=== PATIENT | male | born 1990 | race Caucasian/White ===

== ENCOUNTER 2020-10-11 10:20 | Outpatient (REF) | payer OTHER, SELFPAY | END 2020-10-11 10:21 | disposition home or self-care (01) | LOC: HO.LAB 10:20 | PROVIDERS: Visit Provider Internal Medicine | DX: Z20.822 Contact with and (suspected) exposure to COVID-19 (principal) | CPT/HCPCS: 36415; C9803; U0003 ==

== ENCOUNTER 2020-11-19 19:24 | Emergency (ER) | payer OTHER, SELFPAY ==
[2020-11-19 19:32] VITALS: BP 172/95; PULSE 68; RESP 16; TEMP 36.8; O2SAT 99; BMI 25.7
[2020-11-19] MEDS: Lidocaine HCl 1 % MPF 5 ML VIAL SUBCUT (19:47)
--- NOTE | 2020-11-19 19:53 | ED.SKABFB ---
HPI - Skin/Abscess/Foreign Bdy General Chief complaint: Skin/Abscess/Foreign Body Stated complaint: Abscess Time Seen by Provider: 11/19/20 19:39 Source: patient Mode of arrival: ambulatory Limitations: no limitations History of Present Illness HPI narrative: State feeling of tender area in the right axilla initially felt like a pimple and has been growing for the past couple days his father tried to [place] with a needle guide liver pus out this morning the size has decreased however still painful. There is no fever or chills. MD complaint: abscess/boil Onset (ago): day(s) Tetanus up to date: yes Location: RUE (Axilla) Severity: moderate Severity scale (1-10): 5 Quality: aching Pain Consistency: intermittent (With movement and palpation) Relieving factors: immobilization and other (Compress) Exacerbating factors: palpation and movement Context: none Associated symptoms: denies other symptoms Related Data Previous Rx's Medication Instructions Recorded doxycycline monohydrate 100 mg PO BID 7 Days #14 cap 11/19/20 ibuprofen 800 mg PO Q8H PRN #30 tab 11/19/20 oxycodone 5 mg PO Q8H PRN 3 Days #5 tab 11/19/20 Allergies Allergy/AdvReac Type Severity Reaction Status Date / Time No Known Allergies Allergy Verified 11/19/20 19:39 [No Known Allergies*] Review of Systems Review of Systems: Constitutional: No Weight loss, No Fever, No Chills, No Night Sweats, No Fatigue, No Malaise ENT/Mouth: No Hearing loss, No Ear Pain, No Nasal Congestion, No Sinus Pain, No Hoarseness, No sore throat, No Rhinorrhea, No Swallowing Difficulty Eyes: No Eye Pain, No Swelling, No Redness, No Foreign Body, No Discharge, No Vision Changes Cardiovascular: No Chest Pain, No SOB, No Dyspnea on Exertion, No Orthopnea, No Edema, No Palpitations Respiratory: Negative Gastrointestinal: Negative Genitourinary: Negative Musculoskeletal: No joint pain, No Myalgias, No Joint Swelling Skin: No Skin Lesions, No rash, as noted per HPI Neuro: No Weakness, No Numbness, No Paresthesias, No Loss of Consciousness, No Dizziness, No Headache Psych: Negative Heme/Lymph: No Bruising, No Bleeding,No Lymphadenopathy Endocrine: No Polyuria, No Polydipsia, No Temperature Intolerance Yes all other systems are reviewed and are negative [facility] Past Medical History Medical History (Updated 11/19/20 @ 19:41 by Juwan Hernandez NP) No known health problems Social History Social History Smoked in Last 30 Days: No Use of substances other than those prescribed or required for medical reasons: No Any prior treatment program specific to substance use: No Advance Directives: No Physical Exam Vital Signs: Vital Signs: Last Vital Signs Temp 98.2 F 11/19/20 19:32 Pulse 68 11/19/20 19:32 Resp 16 11/19/20 19:32 BP 172/95 H 11/19/20 19:32 Pulse Ox 99 11/19/20 19:32 Body Mass Index 25.7 Reviewed Const: General: cooperative and healthy appearing; No acute distress or intoxicated appearing Nutritional Appearance: average body habitus Orientation/consciousness: patient oriented x3 HENMT: Head: Yes normal to inspection Ears: hearing grossly normal bilaterally Resp: Effort & Inspection: normal respiratory effort Auscultation: clear to auscultation bilaterally Cardio: Jugular venous distension: no JVD Rhythm: regular rhythm Heart sounds: S1 normal heart sound present and S2 normal heart sound present : General: Yes no CVA tenderness Back/Spine/Pelvis: Back: no CVA tenderness Skin: Other: Right mid axilla noted to have 3 cm annular raised area slightly fluctuant. There is some surrounding mild erythema just around the border of this indurated area. Neuro: General: patient oriented x3 Extrem: General: Yes normal to inspection Course Course Course Narrative: Small right axilla abscess requiring I and D with localized cellulitis. I and D with packing, discharged home with p.o. antibiotics return in 2 days for packing removal. Mass PET reviewed no concerning pattern. Given for 5 tablets of oxycodone for pain as he requests today given that his Tylenol ibuprofen did not help much. Procedures Abscess I/D Site: upper extremity (Axilla) Side (if applicable): right Local Anesthetic: lidocaine 1% Amount of anesthesia used (mL): 5 Technique: incised with blade (11. ) Amount of fluid expressed (mL): 2 Irrigation: Yes Packing used?: plain Complications: other (Tolerated well.) Discharge Plan Discharge Clinical Impression: Abscess of axilla, right, Encounter for incision and drainage procedure Patient Disposition: Home, Self-Care Instructions: Abscess Incision and Drainage (DC) Additional Instructions: Warm compresses Keep site clean and dry Return 2 days for wound packing removal/recheck Return sooner if any concerns or worsening symptoms Thank you Prescriptions: New ibuprofen 800 mg tablet 800 mg PO Q8H PRN (Reason: pain) Qty: 30 RF: 0 doxycycline monohydrate 100 mg capsule 100 mg PO BID 7 Days Qty: 14 RF: 0 oxycodone 5 mg tablet 5 mg PO Q8H PRN (Reason: pain) 3 Days Qty: 5 RF: 0 Referrals: Juwan Hernandez, PSYCHIATRIC LPN [Emergency Midlevel Provider] - 2 days
== END 2020-11-19 20:14 | disposition home or self-care (01) ==
PROVIDERS: Emergency Provider Internal Medicine
DX: L02.411 Cutaneous abscess of right axilla (principal)
CPT/HCPCS: 10060; 99284

== ENCOUNTER 2021-05-22 19:25 | Emergency (ER) | payer SELFPAY ==
[2021-05-22 19:41] VITALS: BP 159/96; PULSE 60; RESP 16; TEMP 36.6; O2SAT 99; BMI 27.3
--- NOTE | 2021-05-22 20:58 | ED.SKABFB ---
HPI - Skin/Abscess/Foreign Bdy General Chief complaint: Skin/Abscess/Foreign Body Stated complaint: Abscess Time Seen by Provider: 05/22/21 20:28 Source: patient Mode of arrival: ambulatory Limitations: no limitations History of Present Illness HPI narrative: 30 y/o male presenting with a tender reddened lesion on his right underarm for the last 3 days. He has a history of an abscess in the same spot a while ago that required I&D but it was much worse. He denies fever or chills. He has pain when he puts his arm down. He is not diabetic. MD complaint: abscess/boil Onset (ago): day(s) (3) Tetanus up to date: yes Location: RUE Severity: moderate Severity scale (1-10): 6 Quality: aching and sharp Pain Consistency: intermittent Relieving factors: immobilization Exacerbating factors: movement Context: none Associated symptoms: denies other symptoms Treatments prior to arrival: none Related Data Previous Rx's Medication Instructions Recorded doxycycline monohydrate 100 mg 100 mg PO BID 7 Days #14 cap 11/19/20 capsule ibuprofen 800 mg tablet 800 mg PO Q8H PRN #30 tab 11/19/20 oxycodone 5 mg tablet 5 mg PO Q8H PRN 3 Days #5 tab 11/19/20 cephalexin 500 mg capsule 500 mg PO Q6H 7 Days #28 cap 05/22/21 doxycycline monohydrate 100 mg 100 mg PO BID #14 tab 05/22/21 tablet Allergies Allergy/AdvReac Type Severity Reaction Status Date / Time No Known Allergies Allergy Verified 05/22/21 20:31 [No Known Allergies*] Review of Systems Review of Systems: Constitutional: No Fever, No Chills Cardiovascular: No Chest Pain, No SOB Respiratory: No Cough, No Sputum Gastrointestinal: No Nausea, No Vomiting, No abdominal Pain Musculoskeletal: No joint pain, No Myalgias Skin: + Skin Lesions, No rash Neuro: No Weakness, No Numbness, No Dizziness, No Headache Psych: + Anxiety/Panic Heme/Lymph: No Bruising, No Lymphadenopathy PMFSH Past Medical History Medical History (Updated 05/22/21 @ 20:59 by DEBI Locke) No known health problems Social History Social History Advance Directives: No Physical Exam Vital Signs: Vital Signs: Last Vital Signs Temp 97.9 F 05/22/21 19:41 Pulse 60 05/22/21 19:41 Resp 16 05/22/21 19:41 BP 159/96 H 05/22/21 19:41 Pulse Ox 99 05/22/21 19:41 Body Mass Index 27.3 Appearance: Alert. Oriented X3. No acute distress. HEENT: normal inspection CVS: Normal heart rate and rhythm. Pulses normal. Respiratory: No respiratory distress. Skin: Skin warm and dry. Normal skin color. Normal skin turgor. No rashes. Extremities: right axillary area with a 2cm firm, erythematous, indurated lesion with mild surrounding erythema and warmth, no fluctuance Neuro: Oriented X 3. No motor deficit. No sensory deficit. Course Course Course Narrative: 30 y/o male presenting with an early abscess to his right axilla. Lesion is small without fluctuance. He would prefer conservative treatment with PO abx, warm compresses and holding off on I&D for now. He will come back to the hospital if symptoms worsen despite conservative management. Critical Care Time Critical Care Time Critical Care Time: No Discharge Plan Discharge Clinical Impression: Abscess of skin or subcutaneous tissue Qualifiers: Site of cutaneous abscess: extremity Site of cutaneous abscess of extremity: axilla Laterality: right Qualified Code(s): L02.411 - Cutaneous abscess of right axilla Patient Disposition: Home, Self-Care Instructions: Abscess (ED) Additional Instructions: Use warm compresses to the area several times per day. Take the prescribed antibiotics as directed. If you have worsening pain, swelling or redness come back to the ER for further evaluation. Prescriptions: New doxycycline monohydrate 100 mg tablet 100 mg PO BID Qty: 14 RF: 0 cephalexin 500 mg capsule 500 mg PO Q6H 7 Days Qty: 28 RF: 0 No Action ibuprofen 800 mg tablet 800 mg PO Q8H PRN (Reason: pain) Qty: 30 RF: 0 doxycycline monohydrate 100 mg capsule 100 mg PO BID 7 Days Qty: 14 RF: 0 oxycodone 5 mg tablet 5 mg PO Q8H PRN (Reason: pain) 3 Days Qty: 5 RF: 0 Interventions: ED Discharge Assessment Last Done: 05/22/21 21:42 Discharge Date/Time: 05/22/21 21:43
[2021-05-22] MEDS: cephALEXin 500 MG CAPSULE PO (21:35)
== END 2021-05-22 21:43 | disposition home or self-care (01) ==
PROVIDERS: Emergency Provider Internal Medicine
DX: L02.411 Cutaneous abscess of right axilla (principal); Z79.899 Other long term (current) drug therapy
CPT/HCPCS: 99283; 99284

== ENCOUNTER → 2021-12-20 10:20 | Outpatient (BNVA) | payer SELFPAY | PROVIDERS: Visit Provider Physician Assistant Medical | DX: Z02.79 Encounter for issue of other medical certificate (principal) ==

== ENCOUNTER 2022-02-08 13:55 | Emergency (ER) | payer SELFPAY ==
--- NOTE | ~2022-02-08 | XR_ITS ---
EXAMINATION: XR CHEST CLINICAL INFORMATION: Cough COMPARISON: None TECHNIQUE: 2 views of the chest were obtained. FINDINGS: No significant abnormality is noted involving the heart, lungs, mediastinum, bony thorax or soft tissues. XR/XR chest 2V IMPRESSION: Unremarkable examination.
[2022-02-08 15:00] VITALS: BP 168/94; PULSE 74; RESP 18; TEMP 36.8; O2SAT 99; BMI 28.1
[2022-02-08 15:42] LABS: Influenza A Negative (Negative); Influenza B2 Negative (Negative)
[2022-02-08 16:05] LABS: Strep A Nucleic Acid Negative (Negative)
[2022-02-08 16:09] LABS: COVID-19 Test Invalid (Negative); IDNOW Serial# 55D5AD1C
--- NOTE | 2022-02-08 16:11 | PC.NURSE ---
lab called asked for just covid to be recollected as the testing kept coming back invalid for the patient
[2022-02-08 16:51] LABS: COVID-19 Test Negative (Negative)
[2022-02-08 17:22] VITALS: BP 145/85; PULSE 67; RESP 18; TEMP 35.8; O2SAT 100
--- NOTE | 2022-02-08 18:28 | ED.URI ---
HPI - URI/Sore Throat General Chief Complaint: Upper Respiratory Symptoms Stated Complaint: diff breathing Time Seen by Provider: 02/08/22 17:55 Source: patient Mode of arrival: ambulatory Limitations: no limitations History of Present Illness HPI Narrative: 31-year-old male presents to ED for coughing, loss of voice, nasal congestion, and sore throat for the past 4 days. Patient denies any chest pain or coughing up blood. Patient states coughing up green phlegm. Related Data Previous Rx's Medication Instructions Recorded doxycycline monohydrate 100 mg 100 mg PO BID 7 Days #14 cap 11/19/20 capsule ibuprofen 800 mg tablet 800 mg PO Q8H PRN #30 tab 11/19/20 oxycodone 5 mg tablet 5 mg PO Q8H PRN 3 Days #5 tab 11/19/20 cephalexin 500 mg capsule 500 mg PO Q6H 7 Days #28 cap 05/22/21 doxycycline monohydrate 100 mg 100 mg PO BID #14 tab 05/22/21 tablet albuterol sulfate 90 mcg/actuation 2 puff INHALATION Q4-6H PRN #8.5 g 02/08/22 aerosol inhaler azithromycin 250 mg tablet See Rx Instructions .ROUTE 02/08/22 .COMPLEX #6 tab Allergies Allergy/AdvReac Type Severity Reaction Status Date / Time No Known Allergies Allergy Verified 05/22/21 20:31 [No Known Allergies*] Review of Systems Review of Systems: Coughing, sore throat, nasal congestion, loss of voice, and body aches Yes all other systems are reviewed and are negative [facility] Past Medical History Medical History (Updated 02/08/22 @ 18:34 by DEBI Caputo) No known health problems Social History Social History Advance Directives: No Advance Directives Information Provided: No Physical Exam Vital Signs: Vital Signs: Last Vital Signs Temp 96.5 F L 02/08/22 17: Pulse 67 02/08/22 17:22 Resp 18 02/08/22 17:22 BP 145/85 H 02/08/22 17:22 Pulse Ox 100 02/08/22 17:22 BMI result Body Mass Index 28.1 Const: General: cooperative, healthy appearing, comfortable, no acute distress, well developed, alert, awake and Physically active Orientation/consciousness: oriented to time and patient oriented x3 HEENT: Head: Yes normal to inspection, Yes No palpable skull fracture present, Yes normocephalic, Yes atraumatic and No abrasion Eyes: General: appearance normal, both eyes and all related structures Neck: Neck: Yes normal visual inspection, Yes full ROM, Yes no lymphadenopathy, Yes no meningeal signs, Yes trachea midline, Yes supple, No anterior neck swelling and No tender Chest: Chest palpation & inspection: normal inspection of the chest and normal palpation of entire chest wall Resp: Effort & Inspection: normal respiratory effort and able to speak in complete sentences Auscultation: wheezes (Mild wheezing) Cardio: Jugular venous distension: no JVD Heart sounds: S1 normal heart sound present and S2 normal heart sound present GI: Inspection: Yes normal to inspection and No abdominal wall ecchymosis Palpation (GI): Soft to palpation, not firm, nontender, no guarding and not rigid : General: No CVA tenderness and Yes no CVA tenderness Back/Spine/Pelvis: Back: no CVA tenderness, No CVA tenderness and No back tenderness Skin: General skin exam: no rashes or lesions noted and elasticity normal Neuro: General: oriented to time, patient oriented x3, gait normal, no meningeal signs and CN's II-XI intact bilaterally Cranial nerves: Yes CN's II-XII intact bilaterally Extrem: Other: Lower extremities negative for swelling, pitting edema, or calf tenderness General: Yes normal to inspection and Yes full ROM Psych: Appearance: grossly normal, well kempt and not disheveled Course Course Course Narrative: COVID, chest x-ray, influenza, strep test ordered for Reevaluation(s) Reevaluation #1: Patient x-ray, COVID, influenza, strep test, chest x-ray all came back normal. Diagnosis bronchitis. Time: 18:32 MDM - URI/Sore Throat MDM Narrative Medical decision making narrative: Bronchitis Lab Data Labs: Lab Results 02/08/22 02/08/22 02/08/22 Range/Units 15:08 15:08 15:08 COVID-19 (JOSE) Invalid (Negative) COVID-19 Clin Com See Note Influenza Type A (MAYI) Negative (Negative) Influenza Type B (MAYI) Negative (Negative) Influenza A & B Note See Note S. pyogenes GrpA MAYI Negative (Negative) 02/08/22 Range/Units 16:23 COVID-19 (JOSE) Negative (Negative) COVID-19 Clin Com See Note Influenza Type A (MAYI) (Negative) Influenza Type B (MAYI) (Negative) Influenza A & B Note S. pyogenes GrpA MAYI (Negative) Discharge Plan Discharge Clinical Impression: Bronchitis Patient Disposition: Home, Self-Care Instructions: Acute Bronchitis (ED) Additional Instructions: Return to the ED immediately for chest pain, coughing up blood, weakness, dizziness, leg swelling, drooling, sore throat, calf pain, or any other concerning symptoms. Please follow-up with primary care provider Prescriptions: New azithromycin 250 mg tablet See Rx Instructions .ROUTE .COMPLEX Qty: 6 0RF Rx Instructions: For 250 mg dose pack: take 500 mg today (day 1), then 250 mg for 4 days (days 2-5) albuterol sulfate 90 mcg/actuation HFA aerosol inhaler 2 puff inhalation Q4-6H PRN (Reason: shortness of breath or wheezing) Qty: 8.5 0RF No Action ibuprofen 800 mg tablet 800 mg PO Q8H PRN (Reason: pain) Qty: 30 0RF doxycycline monohydrate 100 mg capsule 100 mg PO BID 7 Days Qty: 14 0RF oxycodone 5 mg tablet 5 mg PO Q8H PRN (Reason: pain) 3 Days Qty: 5 0RF doxycycline monohydrate 100 mg tablet 100 mg PO BID Qty: 14 0RF cephalexin 500 mg capsule 500 mg PO Q6H 7 Days Qty: 28 0RF Stand Alone Forms: Work/School Release Interventions: ED Discharge Assessment Last Done: 02/08/22 18:47 Discharge Date/Time: 02/08/22 18:48 Print Language: [place]
== END 2022-02-08 18:48 | disposition home or self-care (01) ==
PROVIDERS: Emergency Provider Emergency Medicine
DX: J40 Bronchitis, not specified as acute or chronic (principal); R05.9 Cough, unspecified; Z20.822 Contact with and (suspected) exposure to COVID-19; Z79.899 Other long term (current) drug therapy
CPT/HCPCS: 71046; 87502; 87635; 87651; 99281; 99283

== ENCOUNTER → 2023-12-24 09:25 | Outpatient (BNVA) | payer SELFPAY | PROVIDERS: Visit Provider Physician Assistant Medical | DX: Z02.79 Encounter for issue of other medical certificate (principal) ==

== ENCOUNTER → 2024-04-16 10:47 | Outpatient (BNVA) | payer SELFPAY | PROVIDERS: Visit Provider Internal Medicine | DX: Z02.79 Encounter for issue of other medical certificate (principal) ==